=== PATIENT | male | born 1965 | race African-American/Black ===

== ENCOUNTER 2019-03-23 05:12 | Inpatient (IN) | payer OTHER ==
[~2019-03-23] VITALS: Ht 170.2 cm; Wt 117.9 kg
[2019-03-23] VITALS (7 sets, daily range): BP systolic 155–226; BP diastolic 91–114
[2019-03-23] MEDS ORDERED: NOHOMEMEDICATIONS (05:50)
[2019-03-23] MEDS ORDERED: NORVASC5 M1 PO (05:54)
[2019-03-23] MEDS ORDERED: ZESTRIL40 MG PO (05:54)
[2019-03-23] MEDS ORDERED: HYDROCHLOROTHIA25 M2 PO (05:54)
[2019-03-23 05:57] LABS: HEMATOCRIT 42.3 % (42.0-52.0); HEMOGLOBIN 13.7 gm/dL (14.0-18.0); MCH 29.2 pg (26.0-34.0); MCHC 32.4 g/dL (28.0-37.0); MCV 90.2 fL (80.0-100.0); RBC 4.69 mil/uL (4.50-6.00); WBC 6.3 thou/uL (4.0-11.0)
[2019-03-23 06:05] LABS: CALCIUM 8.6 mg/dL (8.5-10.1); CREATININE 0.7 mg/dL (0.7-1.3); POTASSIUM 3.4 mmol/L (3.5-5.1)
--- NOTE | 2019-03-23 08:03 | EKG ---
[place] [address] [facility] [place] [address] ELECTROCARDIOGRAM REPORT Name: JUDY SHAHID Room #: 170-6 ADM IN M.R.#: [id number] Admission: 03/23/19 Attend Phys: Faisal Johnson MD Discharge: Date of : 61 Report #: [id number] THIS REPORT FOR: //name// [facility] ED Test Date: 2019-03-23 Test Time: 05:34:34 Pat Name: JUDY SHAHID Department: Room: 170 Gender: M Neonatal Doctor: reinaldo : 1965 Requested By: Sonya Ramirez Order Number: [id number] MD: Stone Arriaga Measurements Intervals [place] Rate: 53 P: 20 MS: 211 QRS: -10 QRSD: 114 T: 89 QT: 432 QTc: 406 Interpretive Statements Sinus rhythm Prolonged MS interval Probable left atrial enlargement Left ventricular hypertrophy Anterior Q waves, possibly due to LVH Nonspecific T abnormalities, lateral leads No previous ECG available for comparison Electronically Signed On 03-23-2019 8:02:25 [employer]OD STOREROOM CLERK by Stone Arriaga [email or web address] <ELECTRONICALLY SIGNED> By: Stone Arriaga MD 03/23/1902 Stone Arriaga MD /PATO
[2019-03-23 09:20] LABS: CHOLESTEROL 181 mg/dL (<200); HDL CHOLESTEROL 44 mg/dL (>40); LDL CHOLESTEROL 107 mg/dL (<100); TC:HDL 4.1 Ratio (Not establshd); TRIGLYCERIDE 151 mg/dL (<150); VLDL 30 mg/dL (<40)
[2019-03-23] MEDS ORDERED: SPIRONOLACTONE25 MG PO (17:35)
[2019-03-24] VITALS (8 sets, daily range): BP systolic 122–180; BP diastolic 57–109
[2019-03-24 04:55] LABS: URINE BILIRUBIN NEGATIVE (Negative); URINE BLOOD TRACE (Negative); URINE CLARITY CLEAR; URINE COLOR YELLOW; URINE GLUCOSE-RANDOM* NEGATIVE (Negative); URINE KETONES NEGATIVE (Negative); URINE LEUKOCYTES-REFLEX NEGATIVE (Negative); URINE NITRITE-REFLEX NEGATIVE (Negative); URINE PROTEIN (DIPSTICK) 1+ (Negative); URINE SPECIFIC GRAVITY 1.025 (1.005-1.035); URINE UROBILINOGEN 0.2 E.U./dl (0.2-1.0)
[2019-03-24 05:24] LABS: SQUAMOUS 0-3 Few /LPF (0-3)
[2019-03-24 05:25] LABS: BACTERIA-REFLEX 1-9 Few /HPF (None Seen); CASTS None Seen /LPF (None Seen); CRYSTALS None Seen /LPF (None Seen); MUCUS 0-3 Light strn/LPF (None Seen); URINE RBC 0-2 Rare /HPF (0-2); URINE WBC-REFLEX 0-5 Rare /HPF (0-5)
[2019-03-24 05:30] LABS: ABSOLUTE NEUTROPHILS 5.5 thou/uL (1.4-8.2); BASOPHILS 1.1 % (0.0-2.0); EOSINOPHILS 0.2 % (0.0-3.0); HEMATOCRIT 44.7 % (42.0-52.0); HEMOGLOBIN 14.6 gm/dL (14.0-18.0); LYMPHOCYTES 20.1 % (24.0-44.0); MCH 29.5 pg (26.0-34.0); MCHC 32.7 g/dL (28.0-37.0); MCV 90.3 fL (80.0-100.0); MONOCYTES 9.1 % (1.0-8.0); PLATELET COUNT 301 thou/uL (150-400); POLYS 69.5 % (36.0-66.0); RBC 4.95 mil/uL (4.50-6.00); RDW 14.2 % (10.5-14.5); WBC 7.9 thou/uL (4.0-11.0)
[2019-03-24 05:52] LABS: CALCIUM 9.4 mg/dL (8.5-10.1); CREATININE 0.9 mg/dL (0.7-1.3); MAGNESIUM 1.7 mg/dL (1.8-2.4); TROPONIN-I 0.08 ng/mL (<0.06)
--- NOTE | 2019-03-24 15:44 | 2DMMODE ---
[facility] [place] [address] 2 D/M-MODE ECHOCARDIOGRAM Name: JUDY SHAHID Room #: 215-P ADM IN M.R.#: [id number] Admission: 03/23/19 Attend Phys: Faisal Johnson MD Discharge: Date of : 61 Report #: [id number] THIS REPORT FOR: cc: [facility] physician unknown [facility] - Clinic physician unknown Laurent Oseguera MD ~ THIS REPORT FOR: //name// APPROVED REPORT Study performed: 03/24/2019 14:50:00 EXAM: Comprehensive 2D, Doppler, and color-flow Echocardiogram Patient Location: Bedside Room #: 215 Status: routine BSA: 2.30 HR: 86 bpm BP: 180/97 mmHg Rhythm: NSR Other Information Study Quality: Adequate Indications Hypertensive urgency. Fever. Elevated troponin. Hx: HTN. 2D Dimensions RVDd: 36.34 mm IVSd: 17.32 (7-11mm) LVOT Diam: 25.21 (18-24mm) LVDd: 47.04 mm PWd: 17.49 (7-11mm) Ascending Ao: 32.54 (22-36mm) LVDs: 27.79 (25-40mm) Aortic Root: 38.26 mm Volumes Left Atrial Volume (Systole) Single Plane 4CH: 55.01 mL Single Plane 2CH: 61.10 mL LA ESV Index: 27.00 mL/m2 Aortic Valve AoV Peak Pedro.: 1.61 m/s AO Peak Gr.: 10.32 mmHg LVOT Max P.64 mmHg LVOT Max V: 1.19 m/s [facility] [address] [place] [address] 2 D/M-MODE ECHOCARDIOGRAM Name: JUDY SHAHID RAFAEL Room #: 215-P [facility] IN [facility]#: [id number] Admission: 03/23/19 Attend Phys: Faisal Johnson, Discharge: Date of : 61 Report #: [id number] [id number] Vmax: 3.69 cm2 Mitral Valve E/A Ratio: 0.8 MV Decel. Time: 236.98 ms MV E Max Pedro.: 0.58 m/s MV A Pedro.: 0.70 m/s MV PHT: 68.73 ms IVRT: 86.51 ms Pulmonary Valve PV Peak Pedro.: 1.22 m/s PV Peak Gr.: 5.97 mmHg Pulmonary Vein P Vein S: 0.48 m/s P Vein D: 0.29 m/s P Vein S/D Ratio: 1.66 Tricuspid Valve RAP Estimate: 5.00 mmHg Left Ventricle The left ventricle is normal size. There is normal LV segmental wall motion. Moderate concentric left ventricular hypertrophy. Left ventricular systolic function is normal. LVEF is 65%. Mild diastolic dysfunction is present (impaired relaxation pattern). Right Ventricle The right ventricle is normal size. The right ventricular systolic function is normal. Atria The left atrium size is normal. The right atrium size is normal. Aortic Valve The aortic valve is normal in structure. No aortic regurgitation is present. There is no aortic valvular stenosis. Mitral Valve The mitral valve is normal in structure. There is no mitral valve regurgitation noted. No evidence of mitral valve stenosis. Tricuspid Valve The tricuspid valve is normal in structure. There is no tricuspid valve regurgitation noted. Unable to assess PA pressure. [facility] [address] 2 D/M-MODE ECHOCARDIOGRAM Name: JUDY SHAHID Room #: 215-P ADM IN M.R.#: [id number] Admission: 03/23/19 Attend Phys: Faisal Johnson, Discharge: Date of : 61 Report #: [id number] Pulmonic Valve The pulmonary valve is normal in structure. Trace pulmonic regurgitation. Great Vessels The aortic root measures at the upper limits of normal. The ascending aorta is normal in size. IVC is normal in size and collapses >50% with inspiration. Pericardium There is no pericardial effusion. <Conclusion> The left ventricle is normal size. Moderate concentric left ventricular hypertrophy. Left ventricular systolic function is normal. Mild diastolic dysfunction is present (impaired relaxation pattern). The right ventricle is normal size. The left atrium size is normal. The aortic valve is normal in structure. There is no mitral valve regurgitation noted. There is no tricuspid valve regurgitation noted. <ELECTRONICALLY SIGNED> By: Laurent Oseguera MD 03/24/19 [id number] Laurent Oseguera MD /INF
[2019-03-25 03:34] VITALS: BP 168/93
[2019-03-25 05:53] LABS: CALCIUM 9.1 mg/dL (8.5-10.1); CREATININE 1.1 mg/dL (0.7-1.3); POTASSIUM 3.1 mmol/L (3.5-5.1)
[2019-03-25 07:30] VITALS: BP 187/89
[2019-03-25] MEDS ORDERED: AMLODIPINE BESY10 MG PO (08:31)
[2019-03-25] MEDS ORDERED: TRIAMTERENE-HC1 EAC1 PO (08:31)
[2019-03-25] MEDS ORDERED: CARVEDILOL12.5 MG PO (08:31)
[2019-03-25] MEDS ORDERED: LISINOPRIL40 MG PO (08:31)
[2019-03-25 11:00] VITALS: BP 163/90
[2019-03-25 16:00] VITALS: BP 137/88
[2019-03-25 19:40] VITALS: BP 115/70
[2019-03-26] VITALS (8 sets, daily range): BP systolic 99–131; BP diastolic 57–83
[2019-03-26 05:56] LABS: CALCIUM 8.9 mg/dL (8.5-10.1); CREATININE 1.1 mg/dL (0.7-1.3); POTASSIUM 3.3 mmol/L (3.5-5.1)
[2019-03-27 05:19] VITALS: BP 125/78
[2019-03-27] MEDS ORDERED: OSELTAMIVIR PHO75 MG PO (07:58)
[2019-03-27 08:00] VITALS: BP 118/61; BP 128/70; BP 128/76
[2019-03-27] MEDS ORDERED: PANTOPRAZOLE SO40 M1 PO (08:02)
[2019-03-27] MEDS ORDERED: AMLODIPINE BESY10 MG PO (08:02)
[2019-03-27 10:29] VITALS: BP 125/78
[2019-03-29 09:07] LABS: ADENOVIRUS Negative (Negative); INFLUENZA B Negative (Negative); METAPNEUMOVIRUS Negative (Negative); PARAINFLUENZA 1 Negative (Negative); PARAINFLUENZA 2 Negative (Negative); PARAINFLUENZA 3 Negative (Negative); RHINOVIRUS Negative (Negative); RSV A Negative (Negative); RSV B Negative (Negative)
== END 2019-03-27 10:50 | disposition home or self-care (01) | DRG 194 ==
LOC: ER 05:12 → 2N 06:38 → EROBS 06:38 → 2N 08:05
PROVIDERS: Emergency Medicine Emergency Medical Services; Internal Medicine; Nurse Practitioner; ADMIT Internal Medicine
DX: J10.1 Influenza due to other identified influenza virus with other respiratory manifestations (principal); Z68.41 Body mass index [BMI] 40.0-44.9, adult; I16.0 Hypertensive urgency; E66.01 Morbid (severe) obesity due to excess calories; I10 Essential (primary) hypertension; E78.5 Hyperlipidemia, unspecified; E83.42 Hypomagnesemia; E87.6 Hypokalemia; L91.8 Other hypertrophic disorders of the skin; J40 Bronchitis, not specified as acute or chronic; Z72.89 Other problems related to lifestyle; Z79.2 Long term (current) use of antibiotics; Z79.899 Other long term (current) drug therapy; Z91.14 Patient's other noncompliance with medication regimen; Z82.49 Family history of ischemic heart disease and other diseases of the circulatory system
CPT/HCPCS: 10081